=== PATIENT | male | born 1960 | race Asian ===

== ENCOUNTER 2025-05-26 07:45 | Inpatient (IN) | payer BC, SELFPAY ==
[2025-05-26 08:02] VITALS: BP 148/88; PULSE 89; RESP 18; TEMP 36.9; O2SAT 99; BMI 27.4
--- NOTE | 2025-05-26 08:03 | XR_ITS ---
EXAMINATION: US gall bladder ORDERING PROVIDER: JAKOB Nelson HISTORY: ruq pain TECHNIQUE: Multiplanar still ultrasonography of the right upper quadrant was performed using grayscale imaging, supplemented by color and spectral Doppler as needed. COMPARISON: None. FINDINGS: Liver: Diffuse increased echogenicity. 13.5 cm midclavicular craniocaudal length. No gross masses identified. Smooth contour. Gallbladder: Not hydropic. No para cholecystic fluid. No wall thickening. Biliary system: No biliary ductal dilatation. Common bile duct: 0.3 cm. Pancreas: Not well visualized due to overlying bowel gas. Right kidney length: 9.0 cm. Right collecting system: No hydronephrosis. Right parenchyma: Echogenicity within normal limits without focal lesion or mass. Vascular: Normal hepatopetal flow in the portal vein. Loss of triphasic waveform in the hepatic veins. Other: No ascites or mass. IMPRESSION: 1. No sonographic findings for acute cholecystitis or cholelithiasis. 2. Diffuse increased echogenicity, which can be seen with hepatic steatosis as well as other hepatic pathologies. 3. Nonspecific loss of triphasic waveforms in the hepatic veins can be seen with developing fibrosis.
--- NOTE | 2025-05-26 08:07 | PD.EDABDPN ---
ED Abdominal Pain RME/HPI General Chief Complaint: Abdominal Pain Stated complaint: ABD PAIN 02/09 Time seen by provider: 05/26/25 07:56 Arrival date/time: 05/26/25 07:45 65-year-old male with no known medical history presents to the emergency room with a chief complaint of 8 out of 10 epigastric pain that radiates to the right upper quadrant x 2 days Source: patient Mode of arrival: ambulatory Limitations: no limitations Related Data Previous Rx's ?Medication ?Instructions ?Recorded ciprofloxacin HCl 500 mg tablet 500 mg PO BID #14 tabs 07/02/19 (Cipro) ibuprofen 600 mg tablet 600 mg PO Q8H PRN pain #20 tabs 04/15/24 Allergies Allergy/AdvReac Type Severity Reaction Status Date / Time No Known Allergies Allergy Verified 05/26/25 07:48 Review of Systems Review of Systems Systems Reviewed: All systems reviewed, normal except as documented Constitutional Constitutional: Reports system reviewed and no additional complaints, except as documented, Denies fatigue, Denies fever(s), Denies headache(s) and Denies weakness Eyes Eyes: Reports system reviewed and no additional complaints, except as documented, Denies blurry vision and Denies change in vision ENT Ears, Nose, Mouth, and Throat: Reports system reviewed and no additional complaints, except as documented, Denies otalgia, Denies headache(s), Denies nasal congestion, Denies throat swelling and Denies vertigo Cardiovascular Cardiovascular: Reports system reviewed and no additional complaints, except as documented, Denies chest pain, Denies dyspnea and Denies dyspnea on exertion Respiratory Respiratory: Reports system reviewed and no additional complaints, except as documented, Denies chest congestion, Denies cough, Denies dyspnea, Denies dyspnea on exertion and Denies wheezing Gastrointestinal Gastrointestinal: Reports system reviewed and no additional complaints, except as documented, Reports abdominal pain, Reports cramping, Reports dyspepsia, Denies nausea and Denies vomiting Genitourinary Genitourinary: Reports system reviewed and no additional complaints, except as documented, Denies dysuria and Denies hematuria Musculoskeletal Musculoskeletal: Reports system reviewed and no additional complaints, except as documented and Denies back pain Integumentary/Breasts Skin/Breast: Reports system reviewed and no additional complaints, except as documented and Denies wounds Neurologic Neurologic: Reports system reviewed and no additional complaints, except as documented, Denies confusion, Denies headache(s), Denies lack of coordination, Denies vertigo and Denies weakness Psychiatric Psychiatric: Reports system reviewed and no additional complaints, except as documented, Denies anxiety, Denies confusion, Denies depression, Denies paranoia, Denies suicidal ideation and Denies tactile hallucinations Endocrine Endocrine: Reports system reviewed and no additional complaints, except as documented and Denies fatigue Hematologic/Lymphatic Hematologic/Lymphatic: Reports system reviewed and no additional complaints, except as documented and Denies lymphadenopathy Allergic/Immunologic Allergic/Immunologic: Reports system reviewed and no additional complaints, except as documented, Denies throat swelling, Denies urticaria and Denies wheezing ED Exam General Limitations: Present no limitations General appearance: Present alert and in no apparent distress Head Head exam: Present atraumatic Eye Eye exam: Present normal appearance, PERRL and EOMI ENT ENT exam: Present normal exam, normal oropharynx and mucous membranes moist Neck Neck exam: Present normal inspection, full ROM and trachea midline Chest Chest inspection: Present normal inspection and symmetric chest wall rise Respiratory Respiratory exam: Present normal lung sounds bilaterally Cardiovascular Cardiovascular exam: Present regular rate, normal rhythm and normal heart sounds Abdominal Exam Abdominal exam: Present soft, tenderness and normal bowel sounds; Absent distention, guarding, rebound, rigidity or Holland's sign Abdominal tenderness: Present RUQ Extremities Exam Extremities exam: Present normal inspection and full ROM Back Exam Back exam: Present normal inspection and full ROM Neurological Exam Neurological exam: Present alert, oriented X3 and CN II-XII intact Psychiatric Psychiatric exam: Present normal affect and normal mood Skin Skin exam: Present warm, dry, intact and normal color Course Quality Measures none Orders Category Date Time Status COVID-19 Screening Questionnaire NOW Care 05/26/25 13:06 Active Decision to Admit X1 Care 05/26/25 13:05 Active Insert IV STAT Care 05/26/25 12:30 Active Consult to Gastroenterology Stat Cons 05/26/25 13:[address] abdomen pelvis wo con Stat Exams 05/26/25 10:43 Completed US gall bladder Stat Exams 05/26/25 08:03 Completed CBC Stat Lab 05/26/25 09:24 Completed CMP [Comprehensive Metabolic Panel] Stat Lab 05/26/25 09:24 Completed Lipase Stat Lab 05/26/25 09:24 Completed Lipid Panel Stat Lab 05/26/25 09:24 Completed UA [Urinalysis] Stat Lab 05/26/25 09:32 Completed Urine Culture Stat Lab 05/26/25 09:32 Received Acetaminophen Tab [Tylenol Tab] Med 05/26/25 08:03 Discontinued 650 mg PO X1 ONE Fenofibrate Nanocrystallized [Tricor] Med 05/26/25 12:30 Discontinued 145 mg PO X1 ONE Morphine* Inj Med 05/26/25 13:05 Discontinued 4 mg IVP X1 ONE Ondansetron Inj [Zofran Inj] Med 05/26/25 13:05 Discontinued 4 mg IVP X1 ONE Pantoprazole Inj [Protonix Inj] Med 05/26/25 12:30 Discontinued 40 mg IVP X1 ONE Sodium Chloride 0.9% 1000 ml [Ns] 1,000 ml Med 05/26/25 12:31 Discontinued IV 125 mls/hr mg Hyd/Al Hyd/Hal Susp [Maalox Susp] Med 05/26/25 08:03 Discontinued 30 ml PO X1 ONE Vital Signs Vital signs: Vital Signs Temperature 98.5 F 05/26/25 08:02 Pulse Rate 89 05/26/25 08:02 Respiratory Rate 18 05/26/25 08:02 Blood Pressure 148/88 H 05/26/25 08:02 Pulse Oximetry (%) 99 05/26/25 08:02 Oxygen Delivery Method Room Air 05/26/25 08:02 Abdominal Pain MDM MDM Narrative MDM Narrative:: 65-year-old male with no known medical history presents to the emergency room with a chief complaint of 8 out of 10 epigastric pain that radiates to the right upper quadrant x 2 days Patient is hemodynamically stable and in no apparent distress Physical examination shows tenderness to the patient's epigastric area of the patient's abdomen. Patient denies any nausea any vomiting or any fevers Ultrasound of the gallbladder was completed and was negative for any acute findings. CBC CMP were within normal limits. Lipase was elevated at 2900. A CT of the abdomen and pelvis was then ordered which showed acute pancreatitis. The supervisor machine setter on-call Dr. Steve was consulted and his recommendations were to admit the patient start him on IV fluids and manage his pain. I then called the hospitalist to admit the patient and Dr. Gibbons admitted the patient. Patient data External records reviewed:: [facility] previous records Clinical information provided by:: patient Social determinants that could affect healthcare access:: none Patient has the following chronic illnesses:: No chronic illness How is presenting disease/condition affected by chronic disease/condition?: no chronic disease Evaluation data The following diagnostics were reviewed and interpreted by me:: lab results and radiology exam(s) Lab and/or radiology exams considered but not ordered:: Labs and radiology exams considered and ordered Interpretation Summary: Ultrasound gallbladder-FINDINGS: Liver: Diffuse increased echogenicity. 13.5 cm midclavicular craniocaudal length. No gross masses identified. Smooth contour. Gallbladder: Not hydropic. No para cholecystic fluid. No wall thickening. Biliary system: No biliary ductal dilatation. Common bile duct: 0.3 cm. Pancreas: Not well visualized due to overlying bowel gas. Right kidney length: 9.0 cm. Right collecting system: No hydronephrosis. Right parenchyma: Echogenicity within normal limits without focal lesion or mass. Vascular: Normal hepatopetal flow in the portal vein. Loss of triphasic waveform in the hepatic veins. Other: No ascites or mass. IMPRESSION: 1. No sonographic findings for acute cholecystitis or cholelithiasis. 2. Diffuse increased echogenicity, which can be seen with hepatic steatosis as well as other hepatic pathologies. 3. Nonspecific loss of triphasic waveforms in the hepatic veins can be seen with developing fibrosis. CT abdomen pelvis-Findings: No focal liver or splenic lesions No gallstones Mild edema around the body and tail of the pancreas No adrenal mass Left renal calculi, the largest 7 mm Posterior 33 mm left renal cyst Aortic calcification no aneurysmal dilatation Normal appendix Normal seminal vesicles Mild prostatomegaly Urinary bladder intact IMPRESSION: Mild acute pancreatitis No pancreatic pseudocyst Nonobstructing left renal calculi Normal appendix Medications / Prescriptions Medications or Prescriptions considered but not ordered:: Medication given Medication administrations:: Medication Administration History Acetaminophen (Acetaminophen 325 Mg Tablet) 650 mg PO Q6H PRN PRN Reason: PAIN SCALE 1-3 (mild Stop: 06/25/25 13:24 Sodium Chloride (Ns) 1,000 mls @ 110 mls/hr IV .Q9H6M BETTIE Stop: 06/25/25 13:29 Sodium Chloride (Ns) 1,000 mls @ 175 mls/hr IV .Q5H43M BETTIE Stop: 06/25/25 13:45 Ondansetron HCl (Ondansetron Inj 2 Mg/Ml Inj 2 Ml) 4 mg IVP Q6H PRN; Protocol PRN Reason: NAUSEA OR VOMITING Stop: 06/25/25 13:24 Tramadol HCl (Tramadol Hcl 50 Mg Tablet) 50 mg PO Q6HR PRN PRN Reason: PAIN SCALE 4-6 (Moderate Stop: 05/31/25 13:24 Discontinued Medications Acetaminophen (Acetaminophen 325 Mg Tablet) 650 mg PO X1 ONE Stop: 05/26/25 08:04 Last Admin: 05/26/25 08:10 Dose: 650 mg Documented By: VL Al Hydrox/Mg Hydrox/Simethicone (Mg Hyd/Al Hyd/Hal (Maalox Reg) Susp 30 Ml Udc) 30 ml PO X1 ONE Stop: 05/26/25 08:04 Last Admin: 05/26/25 08:10 Dose: 30 ml Documented By: VL Fenofibrate (Fenofibrate 145 Mg Tablet (Non-Formulary)) 145 mg PO X1 ONE Stop: 05/26/25 12:31 Last Admin: 05/26/25 15:15 Dose: 145 mg Documented By: TANK Sodium Chloride (Ns) 1,000 mls @ 125 mls/hr IV .Q8H BETTIE Stop: 06/25/25 12:30 Last Admin: 05/26/25 13:45 Dose: 125 mls/hr Documented By: OA Morphine Sulfate (Morphine Sulf Inj 4 Mg/Ml Vial) 4 mg IVP X1 ONE Stop: 05/26/25 13:06 Last Admin: 05/26/25 14:15 Dose: 4 mg Documented By: VL Ondansetron HCl (Ondansetron Inj 2 Mg/Ml Inj 2 Ml) 4 mg IVP X1 ONE; Protocol Stop: 05/26/25 13:06 Last Admin: 05/26/25 14:14 Dose: 4 mg Documented By: ROLLY Pantoprazole Sodium (Pantoprazole Inj 40 Mg Vial) 40 mg IVP X1 ONE Stop: 05/26/25 12:31 Medication given medication given Consultations Consultation(s) initiated? (list below): Yes Consultation #1 (Physician, Specialty, Details): Dr. Steve, supervisor machine setter on-call Time: 13:00 Diagnosis Differential diagnosis abdominal pain: abdominal pain, constipation, gastroenteritis, pancreatitis and other (Cholelithiasis/cholecystitis/gastritis/acute pancreatitis) Most likely diagnosis given after review of the tests above:: Pancreatitis Admission Indicated Admission indicated?: indicated Admission Request Was there a request for admission?: Yes Admission Attestation Admission request attestation: Discussed case with [] from Hospitalist service regarding admission. Discussed patients ED course, exam findings, labs, and radiology results. The Hospitalist [agrees,declines] to accept the patient for admission. Disposition Plan Disposition Plan: Admit Discharge Plan Plan Patient Disposition: HOME (Self Care) Discharge Disposition comment: Stable Problem List Clinical Impression: Acute pancreatitis
[2025-05-26] MEDS: MG HYD/AL HYD/SIME (Maalox Reg) SUSP 30 ML UDC PO (08:10)
[2025-05-26] MEDS: ACETAMINOPHEN 325 MG TABLET 650 MG PO (08:10)
[2025-05-26 09:41] LABS: Collection Type, Urine Clean Catch; Squamous Epithelial Cell,Urine 0 /hpf (0-5)
[2025-05-26 09:49] LABS: Bilirubin,Urine Negative (Negative); Blood,Urine Negative (Negative); Clarity,Urine Clear (Clear/Hazy); Color,Urine Lt-Yellow (Lt Yel-Yel); Glucose, Urine 3+ (Negative); Hyaline Casts,Urine < 1 /hpf (0-1); Ketones,Urine Negative (Negative); Leukocyte Esterase,Urine Negative (Negative); Nitrite,Urine Negative (Negative); PH,Urine 6.0 (5.0-7.0); Protein,Urine Trace (Neg - Trace); RBC,Urine 1 /hpf (0-3); Specific Gravity,Urine 1.030 (1.001-1.035); Urobilinogen,Urine Negative mg/dL (0.0-1.0); WBC,Urine 1 /hpf (0-5)
[2025-05-26 10:00] LABS: Basophils # (Auto) 0.0 Thou/mm3 (0.0-0.2); Basophils % (Auto) 0 % (0-2.5); Eosinophils # (Auto) 0.0 Thou/mm3 (0.0-0.5); Eosinophils % (Auto) 0 % (0-10); Hematocrit 45.3 % (41.0-53.0); Hemoglobin 15.0 g/dL (13.5-16.0); Immature Granulocytes Auto 0.05 Thou/mm3 (0.00-0.00); Lymphocytes # (Auto) 1.1 Thou/mm3 (1.0-4.8); Lymphocytes % (Auto) 11 % (10-50); Mean Corpuscular HGB Conc 33.1 g/dl (31.0-37.0); Mean Corpuscular Hemoglobin 28.6 pg (25.0-35.0); Mean Corpuscular Volume 87 fL (80-100); Monocytes # (Auto) 0.5 Thou/mm3 (0.0-0.8); Monocytes % (Auto) 5 % (0-12); Neutrophils # (Auto) 8.0 Thou/mm3 (1.8-7.7); Neutrophils % (Auto) 83 % (37-80); Nucleated Red Blood Cell # 0.00 Thou/mm3 (0.00-0.00); Nucleated Red Blood Cell % 0 /100 WBC (0); Platelet Count 174 Thou/mm3 (140-440); RDW Standard Deviation 37.6 fL (35.1-43.9); Red Blood Count 5.24 Miln/mm3 (4.50-5.90); White Blood Count 9.6 Thou/mm3 (3.8-10.6)
[2025-05-26 10:21] LABS: Alanine Aminotransferase 37 U/L (10-49); Albumin, Serum 5.0 gm/dL (3.4-4.8); Albumin/Globulin Ratio 2.1 (1.2-2.2); Alkaline Phosphatase 79 U/L (46-116); Anion Gap 12 (7-16); Aspartate Amino Transferase 27 U/L (0-34); BUN/Creatinine Ratio 17 Ratio (12-20); Bilirubin,Total 0.3 mg/dL (0.3-1.2); Blood Urea Nitrogen 20 mg/dL (9-23); Calcium 9.6 mg/dL (8.3-10.6); Calcium (Corrected) 9.6 mg/dL (8.5-10.1); Carbon Dioxide 24.4 mMol/L (20.0-31.0); Chloride 103 mMol/L (98-107); Creatinine (Component) 1.2 mg/dL (0.6-1.3); Estimated Creatinine Clearance 57.5 mL/min (>60); Globulin 2.4 gm/dL (2.3-3.5); Glucose 257 mg/dL (74-106); Lipase 2956 U/L (12-53); Osmolality,Calculated 289 (275-295); Potassium 4.4 mMol/L (3.4-5.1); Sodium 139 mMol/L (136-145); Total Protein 7.4 gm/dL (5.7-8.2); eGFR > 60 See Note
--- NOTE | 2025-05-26 10:43 | XR_ITS ---
Examination: CT abdomen and pelvis without contrast. Coronal 3-D reconstructions. Sagittal 2-D reconstructions. Date and time of exam: May 26, 2025, 11:20 a.m. INDICATIONS: Epigastric pain radiating to the right upper abdomen beginning 2 days ago COMPARISON: November 01, 2008 CTDI: vol (mGy): 7.25 DLP: (mGycm): 408 Technique: Axial images of the abdomen have been obtained, 3 mm slice thickness Intravenous contrast material has not been administered. Low dose protocols were performed. One or more of the following dose reduction techniques were used; automated exposure control, adjustment of the mA and/or KV according to patient size, use of iterative reconstruction technique. Findings: No focal liver or splenic lesions No gallstones Mild edema around the body and tail of the pancreas No adrenal mass Left renal calculi, the largest 7 mm Posterior 33 mm left renal cyst Aortic calcification no aneurysmal dilatation Normal appendix Normal seminal vesicles Mild prostatomegaly Urinary bladder intact IMPRESSION: Mild acute pancreatitis No pancreatic pseudocyst Nonobstructing left renal calculi Normal appendix
[2025-05-26 11:50] LABS: Cardiac Risk Estimate 5.0 RATIO (4.0-6.7); Cholesterol 314 mg/dL (132-200); HDL Cholesterol 63 mg/dL (40-60); LDL Cholesterol,Calculated 183 mg/dL (0-130); Triglycerides 342 mg/dL (30-150)
[2025-05-26] MEDS: SODIUM CHLORIDE 0.9% 1000 ML 1,000 ML 125 ML IV (13:45)
[2025-05-26] MEDS: ONDANSETRON INJ 2 MG/ML INJ 2 ML 4 MG IVP ×2 (14:14→17:39)
[2025-05-26] MEDS: MORPHINE SULF INJ 4 MG/ML VIAL IVP (14:15)
[2025-05-26 15:03] VITALS: BP 143/84; PULSE 77; RESP 16; TEMP 36.8; O2SAT 96
[2025-05-26] MEDS: FENOFIBRATE 145 MG TABLET (NON-FORMULARY) PO (15:15)
--- NOTE | 2025-05-26 16:09 | ESHP_ITS ---
Documentation for date of: 05/26/25 [facility] History of Present Illness History of present illness: Patient is a 65-year-old M with a PMH of pre-diabetes and HLD who presented on 05/26/2025 with a chief complaint of abdominal pain. He states that the pain started at 4 AM earlier in the morning and was accompanied by sweating, nausea, and dry heaving (but no actual episodes of vomiting). When asked if he thought that anything might have triggered this, he reported that he ate pork belly and rice the night prior but denies ever having a similar previous episode. He describes the pain as generally localized all across the abdomen with some radiation to the back and rated the pain as a 10/10 (later decreasing to 2/10 as he received morphine during the interview). PMH: pre-diabetes, HLD PSH: none Medications: none Allergies: NKDA FH: both parents have T2DM and mother had ovarian cancer SH: smoked an average of 0.5 packs/day from age [age] In the ED, vitals showed: BP 148/88 HR 89 RR 18 Temp 98.5 SpO2 99% on room air CBC WNL. CMP showed blood glucose 257, lipid panel - (triglycerides 342, cholesterol 314, LDL 183, HDL 63), and lipase 2956. UA was bland. Imagin/24 gallbladder US showed findings suggestive of hepatic steatosis and developing fibrosis but was negative for sonographic findings for acute cholecystitis or cholelithiasis. 05/26 CTAP showed mild acute pancreatitis and non-obstructing left renal calculi. In the ED, patient was given Maalox PO, Tylenol PO, Zofran IV, morphine IV, fenofibrate PO, Protonix IV, and 2 L NS fluid. Patient was admitted for the work-up and management of acute pancreatitis. GI was consulted and is closely following the case. Review of Systems Review of Systems Systems Reviewed: All systems reviewed, normal except as documented Exam Vital Signs Temp Pulse Resp BP Pulse Ox O2 Del Method 98.3 F 77 16 143/84 H 96 Room Air 05/26/25 15:03 05/26/25 15:03 05/26/25 15:03 05/26/25 15:03 05/26/25 15:03 05/26/25 15:03 Narrative Exam General: Well-developed and well-nourished male in some distress. Skin: Warm, dry, intact, no obvious rash. Head: Normocephalic, atraumatic. Eyes: EOMI. Anicteric, vision grossly intact. Ears: No ear pain, no ear discharge, Hearing grossly intact. Nose: No nasal discharge. Mouth/Throat: Oral mucosa moist. No obvious lesions in oropharynx. Cardiovascular: Regular rate and normal rhythm, no murmur, no JVD or carotid bruits. +S1/S2. Respiratory: Bilateral lungs are clear to auscultation, respirations unlabored, no crackles, no wheezing. No accessory muscle use. Gastrointestinal: (of note, patient had received morphine IV by the time of abdominal exam) Soft, nontender, non-distended, no palpable masses. No guarding or rebound tenderness. Peristalsis present. Extremities: Symmetrical, no significant deformities. No edema, no cyanosis, no clubbing. 2+ radial pulse bilaterally, 2+ posterior tibial pulse bilaterally. Neuro: A&O x 3. No focal deficits observed. Conversant, moving all extremities. No overt cerebellar signs/incoordination. Psychiatric: Cooperative, appropriate affect. Results: Labs 05/26/25 09:24 05/26/25 09:24 Labs: Short CBC 05/26/25 Range/Units 09:24 WBC 9.6 (3.8-10.6) Thou/mm3 Hgb 15.0 (13.5-16.0) g/dL Hct 45.3 (41.0-53.0) % Plt Count 174 (140-440) Thou/mm3 BMP 05/26/25 09:24 Sodium 139 Potassium 4.4 Chloride 103 Carbon Dioxide 24.4 BUN 20 Creatinine 1.2 Glucose 257 H Calcium 9.6 Liver Function 05/26/25 Range/Units 09:24 Total Bilirubin 0.3 (0.3-1.2) mg/dL AST 27 (0-34) U/L ALT 37 (10-49) U/L Alkaline Phosphatase 79 (46-116) U/L Albumin 5.0 H (3.4-4.8) gm/dL Urine 05/26/25 Range/Units 09:32 Urine Color Lt-Yellow (Lt Yel-Yel) Urine Clarity Clear (Clear/Hazy) Urine pH 6.0 (5.0-7.0) Ur Specific [place] 1.030 (1.001-1.035) Urine Protein Trace (Neg - Trace) Urine Glucose (UA) 3+ A (Negative) Quality Measures Quality Measures none Medications Home Medications and Allergies Allergies Allergy/AdvReac Type Severity Reaction Status Date / Time No Known Allergies Allergy Verified 05/26/25 07:48 Visit Medications Acetaminophen (Acetaminophen 325 Mg Tablet) 650 mg PO Q6H PRN PRN Reason: PAIN SCALE 1-3 (mild Stop: 06/25/25 13:24 Sodium Chloride (Ns) 1,000 mls @ 120 mls/hr IV .Q8H20M BETTIE Stop: 06/25/25 15:36 Ondansetron HCl (Ondansetron Inj 2 Mg/Ml Inj 2 Ml) 4 mg IVP Q6H PRN; Protocol PRN Reason: NAUSEA OR VOMITING Stop: 06/25/25 13:24 Tramadol HCl (Tramadol Hcl 50 Mg Tablet) 50 mg PO Q6HR PRN PRN Reason: PAIN SCALE 4-6 (Moderate Stop: 05/31/25 13:24 Discontinued Medications Acetaminophen (Acetaminophen 325 Mg Tablet) 650 mg PO X1 ONE Stop: 05/26/25 08:04 Last Admin: 05/26/25 08:10 Dose: 650 mg Al Hydrox/Mg Hydrox/Simethicone (Mg Hyd/Al Hyd/Hal (Maalox Reg) Susp 30 Ml Udc) 30 ml PO X1 ONE Stop: 05/26/25 08:04 Last Admin: 05/26/25 08:10 Dose: 30 ml Fenofibrate (Fenofibrate 145 Mg Tablet (Non-Formulary)) 145 mg PO X1 ONE Stop: 05/26/25 12:31 Last Admin: 05/26/25 15:15 Dose: 145 mg Sodium Chloride (Ns) 1,000 mls @ 125 mls/hr IV .Q8H BETTIE Stop: 06/25/25 12:30 Last Admin: 05/26/25 13:45 Dose: 125 mls/hr Sodium Chloride (Ns) 1,000 mls @ 110 mls/hr IV .Q9H6M BETTIE Stop: 06/25/25 13:29 Sodium Chloride (Ns) 1,000 mls @ 175 mls/hr IV .Q5H43M BETTIE Stop: 06/25/25 13:45 Morphine Sulfate (Morphine Sulf Inj 4 Mg/Ml Vial) 4 mg IVP X1 ONE Stop: 05/26/25 13:06 Last Admin: 05/26/25 14:15 Dose: 4 mg Ondansetron HCl (Ondansetron Inj 2 Mg/Ml Inj 2 Ml) 4 mg IVP X1 ONE; Protocol Stop: 05/26/25 13:06 Last Admin: 05/26/25 14:14 Dose: 4 mg Pantoprazole Sodium (Pantoprazole Inj 40 Mg Vial) 40 mg IVP X1 ONE Stop: 05/26/25 12:31 Assessment & Plan Plan Patient is a 65-year-old M with a PMH of pre-diabetes and HLD who presented on 05/26/2025 with a chief complaint of abdominal pain. Patient was admitted for the work-up and management of acute pancreatitis. #Acute pancreatitis #Hyperlipidemia #Hepatic steatosis Patient presented on 05/26 with abdominal pain that radiated to the back accompanied by sweating, nausea, and dry heaving 05/26 admission lipase 2956 and lipid panel showed triglycerides 342, cholesterol 314, LDL 183, HDL 63 05/26 gallbladder US showed hepatic steatosis and developing fibrosis but was negative for acute cholecystitis or cholelithiasis 05/26 CTAP showed mild acute pancreatitis No significant drinking history Rx: -IV NS maintenance fluid @ 120 cc/hr -NPO for bowel rest -Pain management -Zofran 4 mg IV prn #Pre-diabetes 05/26 admission blood glucose 257 No home medications for diabetes Dx: -Hemoglobin A1c ordered, ___ Rx: -Monitor blood glucose q6HR -Will start insulin sliding scale if blood glucose levels consistently remain above 180 Hospital Management: Disposition: Med Surg Diet: NPO GI Prophylaxis: Not Indicated Bowel Prophylaxis: Not Indicated DVT Prophylaxis: Heparin CODE STATUS: Full Code I have examined the patient and conferred with my attending, Dr. Gibbons, and my senior resident, Dr. Sharif, regarding them. Cortes Saini DO PGY-1 Internal Medicine Attending Provider Attestation/Addendum I or my resident physicians have discussed care with the ED physician and I have made the decision to admit. I have discussed and was present for the essential components of the history, physical examination, diagnosis, and treatment plan with the resident. I agree with the patient's care as documented by the resident and amended herein by me. Anirudh Gibbons DO. Although this document has been carefully reviewed, there may still be some phonetic and other typographical errors. These errors are purely grammatical due to imperfections in the software program and should not be construed in any way to compromise the substance of the patient's medical care during this visit.
[2025-05-26] MEDS: SODIUM CHLORIDE 0.9% 1000 ML 1,000 ML 120 ML IV (16:22)
--- NOTE | 2025-05-26 16:48 | PC.NURSE ---
Patient arrived [id number]
[2025-05-26 17:04] VITALS: BMI 27.4
[2025-05-26] MEDS: HEPARIN SOD INJ 5000 UNIT/ML VIAL SC (17:38)
--- NOTE | 2025-05-26 17:47 | PC.NURSE ---
ice chips ok if tolerated Dr. SORENSON
--- NOTE | 2025-05-26 19:46 | PD.IMCONS ---
HPI Data of Consult Requesting Physician: Atul Gibbons DO Primary Care Provider: Rosario Crouch MD Consult Narrative Reason for consult: Pain abdomen, elevated lipase, elevated triglycerides History of present illness: 65 years male who presented with pain abdomen Workup in the emergency room revealed the patient has lipase of 2956 CT scan of the abdomen pelvis without contrast showed acute pancreatitis no gallbladder stones Patient's lipid profile showed a total cholesterol 314 HDL 63 LDL 183 and alk phos of 342 Case was discussed with the internal medicine team and the ER physician activities assistant and subsequently admitted For being n.p.o. IV fluids Pain control Start the patient on atorvastatin 80 mg once a day and fenofibrate 165 mg once a day cc:: cc: Atul Gibbons DO Review of Systems Review of Systems Systems Reviewed: All systems reviewed, normal except as documented Past Medical History Surgical History OTHER SURGICAL HX: As in the history of present illness Meds Home Medications and Allergies Allergies Allergy/AdvReac Type Severity Reaction Status Date / Time No Known Allergies Allergy Verified 05/26/25 07:48 Exam Vital Signs Temp Pulse Resp BP Pulse Ox O2 Del Method 98.3 F 77 16 143/84 H 96 Room Air 05/26/25 15:03 05/26/25 15:03 05/26/25 15:03 05/26/25 15:03 05/26/25 15:03 05/26/25 15:03 Constitutional Comments: In somewhat of a pain Routine Respiratory Exam Comments: Normal to auscultation Routine Abdominal Exam Comments: Soft nontender Results Labs 05/26/25 09:24 05/26/25 09:24 Labs: Short CBC 05/26/25 Range/Units 09:24 WBC 9.6 (3.8-10.6) Thou/mm3 Hgb 15.0 (13.5-16.0) g/dL Hct 45.3 (41.0-53.0) % Plt Count 174 (140-440) Thou/mm3 BMP 05/26/25 09:24 Sodium 139 Potassium 4.4 Chloride 103 Carbon Dioxide 24.4 BUN 20 Creatinine 1.2 Glucose 257 H Calcium 9.6 Liver Function 05/26/25 Range/Units 09:24 Total Bilirubin 0.3 (0.3-1.2) mg/dL AST 27 (0-34) U/L ALT 37 (10-49) U/L Alkaline Phosphatase 79 (46-116) U/L Albumin 5.0 H (3.4-4.8) gm/dL Urine 05/26/25 Range/Units 09:32 Urine Color Lt-Yellow (Lt Yel-Yel) Urine Clarity Clear (Clear/Hazy) Urine pH 6.0 (5.0-7.0) Ur Specific [place] 1.030 (1.001-1.035) Urine Protein Trace (Neg - Trace) Urine Glucose (UA) 3+ A (Negative) Assessment and Plan Additional Assessment & Plan Additional Plan: Acute hypertriglyceridemia induced pancreatitis Pain abdomen secondary to 1 Plan IV fluids Pain control n.p.o. Atorvastatin 80 mg once a day Fenofibrate 145 mg once a day Dietary consultation for a 10 g fat diet Will follow the patient Thank you very much for the opportunity to participate in the care of this patient
[2025-05-26 20:00] VITALS: BP 107/67; PULSE 84; RESP 18; TEMP 37.4; O2SAT 96
[2025-05-26] MEDS: MORPHINE SULF INJ 4 MG/ML VIAL 2 MG IVP (21:30)
[2025-05-27] VITALS: BP 119/76; PULSE 87; RESP 18; TEMP 37.1; O2SAT 93
[2025-05-27] MEDS: SODIUM CHLORIDE 0.9% 1000 ML 1,000 ML 120 ML IV ×3 (01:40→21:01)
[2025-05-27 04:00] VITALS: BP 97/64; PULSE 93; RESP 18; TEMP 36.8; O2SAT 95
[2025-05-27 06:03] LABS: Basophils # (Auto) 0.0 Thou/mm3 (0.0-0.2); Basophils % (Auto) 0 % (0-2.5); Eosinophils # (Auto) 0.1 Thou/mm3 (0.0-0.5); Eosinophils % (Auto) 1 % (0-10); Hematocrit 41.6 % (41.0-53.0); Hemoglobin 13.5 g/dL (13.5-16.0); Immature Granulocytes Auto 0.03 Thou/mm3 (0.00-0.00); Lymphocytes # (Auto) 2.0 Thou/mm3 (1.0-4.8); Lymphocytes % (Auto) 20 % (10-50); Mean Corpuscular HGB Conc 32.5 g/dl (31.0-37.0); Mean Corpuscular Hemoglobin 28.4 pg (25.0-35.0); Mean Corpuscular Volume 88 fL (80-100); Monocytes # (Auto) 0.8 Thou/mm3 (0.0-0.8); Monocytes % (Auto) 8 % (0-12); Neutrophils # (Auto) 6.9 Thou/mm3 (1.8-7.7); Neutrophils % (Auto) 70 % (37-80); Nucleated Red Blood Cell # 0.00 Thou/mm3 (0.00-0.00); Nucleated Red Blood Cell % 0 /100 WBC (0); Platelet Count 168 Thou/mm3 (140-440); RDW Standard Deviation 38.7 fL (35.1-43.9); Red Blood Count 4.75 Miln/mm3 (4.50-5.90); White Blood Count 9.8 Thou/mm3 (3.8-10.6)
[2025-05-27 06:16] LABS: Glucose Estimated Average 148 mg/dL (80-131); Hemoglobin A1C 6.8 % Hgb (4.8-6.0)
[2025-05-27 06:23] LABS: Anion Gap 9 (7-16); BUN/Creatinine Ratio 13 Ratio (12-20); Blood Urea Nitrogen 13 mg/dL (9-23); Carbon Dioxide 23.8 mMol/L (20.0-31.0); Chloride 107 mMol/L (98-107); Creatinine (Component) 1.0 mg/dL (0.6-1.3); Estimated Creatinine Clearance 69.0 mL/min (>60); Glucose 158 mg/dL (74-106); Potassium 3.9 mMol/L (3.4-5.1); Sodium 140 mMol/L (136-145); eGFR > 60 See Note
[2025-05-27 06:24] LABS: Alanine Aminotransferase 29 U/L (10-49); Albumin, Serum 4.4 gm/dL (3.4-4.8); Albumin/Globulin Ratio 2.3 (1.2-2.2); Amylase 946 U/L (30-118); Aspartate Amino Transferase 18 U/L (0-34); Bilirubin,Total 0.7 mg/dL (0.3-1.2); Calcium 9.0 mg/dL (8.3-10.6); Calcium (Corrected) 9.0 mg/dL (8.5-10.1); Globulin 1.9 gm/dL (2.3-3.5); Lipase 522 U/L (12-53); Osmolality,Calculated 282 (275-295); Total Protein 6.3 gm/dL (5.7-8.2)
[2025-05-27 06:54] LABS: Alkaline Phosphatase 64 U/L (46-116)
[2025-05-27 08:00] VITALS: BP 110/70; PULSE 60; RESP 17; TEMP 36.1; O2SAT 94
[2025-05-27] MEDS: HEPARIN SOD INJ 5000 UNIT/ML VIAL SC ×2 (08:13→21:01)
[2025-05-27 12:00] VITALS: BP 109/51; PULSE 71; RESP 17; TEMP 36.6; O2SAT 96
--- NOTE | 2025-05-27 13:37 | ESPR_ITS ---
<Statement entered by Sherie Sharif MD - 05/27/25 16:23> Patient was seen and examined by me personally. I have directly supervised and reviewed documentation by the team resident and agree with its findings with any exceptions or additional findings as below. Plan of care was discussed with the attending, Dr. Vila. Patient was seen and examined today, feeling much better than yesterday on admission. Patient denied any abdominal pain today, nausea, or vomiting. Patient denies feeling hungry however is amenable to starting clear liquids for lunch, later checked in with patient and he tolerated it well. Will advance the diet for dinner. Continue fluids at 120 ml/hr. Patient had an A1c of 6.8, placing him in diabetic range. Patient stated that previously, he has been borderline before but never been diagnosed a diabetic. He also has not seen a doctor in several years. Educated patient on the diagnosis of diabetes and diet and lifestyle modifications. Consulted foundry patternmaker who will be able to debt management counselor the patient tomorrow morning. Likely discharge tomorrow around noon, will most likely start metformin, along with atorvastatin, and fenofibrate as recommended by GI. Sherie Sharif, PGY-3 Documentation for date of: 05/27/25 Subjective Subjective Interval history: (below account synthesized retroactively with additional information from Dr. Sharif's attestation) No overnight events. Patient was examined at bedside; they appear A&Ox3 and in NAD. Vitals/labs today WNL. Physical exam was non-contributory. On interview today, patient reported feeling much better than he did yesterday upon admission. He denied any abdominal pain today, nausea, or vomiting. Patient also denied feeling hungry but was amenable to starting clear liquids for lunch, which he tolerated well. For dinner, his diet will be advanced to Carbohydrate Consistent Low and, if he tolerates it, he will be considered medically cleared for discharge. In the meantime, he will be continued on fluids at 120 cc/hr. Patient's HgbA1c this admission has resulted at 6.8, placing him in diabetic range instead of pre-diabetic. Patient stated that previously, he has been borderline before but had never been diagnosed as diabetic outright. He also has not seen a doctor in several years. Patient was educated on the diagnosis of diabetes and diet and lifestyle modifications. A consult for dietitian has been ordered who will be able to debt management counselor the patient tomorrow morning. Patient is anticipated to be discharged tomorrow around noon and will most likely be started on metformin, atorvastatin, and fenofibrate as recommended by GI. Exam Vital Signs Temp Pulse Resp BP Pulse Ox O2 Del Method 97.8 F 71 17 109/51 L 96 Room Air 05/27/25 12:00 05/27/25 12:00 05/27/25 12:00 05/27/25 12:00 05/27/25 12:00 05/27/25 12:00 Narrative Exam General: Well-developed and well-nourished male in no acute distress. Skin: Warm, dry, intact, no obvious rash. Head: Normocephalic, atraumatic. Eyes: EOMI. Anicteric, vision grossly intact. Ears: No ear pain, no ear discharge, Hearing grossly intact. Nose: No nasal discharge. Mouth/Throat: Oral mucosa moist. No obvious lesions in oropharynx. Cardiovascular: Regular rate and normal rhythm, no murmur, no JVD or carotid bruits. +S1/S2. Respiratory: Bilateral lungs are clear to auscultation, respirations unlabored, no crackles, no wheezing. No accessory muscle use. Gastrointestinal: Soft, nontender, non-distended, no palpable masses. No guarding or rebound tenderness. Peristalsis present. Extremities: Symmetrical, no significant deformities. No edema, no cyanosis, no clubbing. 2+ radial pulse bilaterally, 2+ posterior tibial pulse bilaterally. Neuro: A&O x 3. No focal deficits observed. Conversant, moving all extremities. No overt cerebellar signs/incoordination. Psychiatric: Cooperative, appropriate affect. Objective Labs 05/28/25 05:10 05/28/25 05:10 Labs: Laboratory Results - last 24 hr 05/27/25 05:11 WBC 9.8 RBC 4.75 Hgb 13.5 Hct 41.6 MCV 88 MCH 28.4 MCHC 32.5 RDW Std Deviation 38.7 Plt Count 168 Neut % (Auto) 70 Lymph % (Auto) 20 [place] % (Auto) 8 Eos % (Auto) 1 Baso % (Auto) 0 Neut # (Auto) 6.9 Lymph # (Auto) 2.0 [place] # (Auto) 0.8 Eos # (Auto) 0.1 Baso # (Auto) 0.0 Immature Gran # (Auto) 0.03 H Absolute Nucleated RBC 0.00 Immature Gran % 0 Nucleated RBC % 0 Sodium 140 Potassium 3.9 D Chloride 107 Carbon Dioxide 23.8 Anion Gap 9 BUN 13 Creatinine 1.0 Estim Creat Clear Calc 69.0 eGFR > 60 BUN/Creatinine Ratio 13 [address]ucose [address] Glu mg/dL 148 H Hemoglobin A1c 6.8 H Calculated Osmolality 282 Calcium 9.0 Corrected Calcium 9.0 Total Bilirubin 0.7 AST 18 ALT 29 Alkaline Phosphatase 64 Total Protein 6.3 Albumin 4.4 D Globulin 1.9 L Albumin/Globulin Ratio 2.3 H Amylase 946 H* Lipase 522 H D Quality Measures Quality Measures none Assessment & Plan Assessment Current Active Medications: Generic Name Dose Route Start Last Admin Trade Name Freq PRN Reason Stop Dose Admin Acetaminophen 650 mg 05/26/25 13:25 Acetaminophen 325 Mg Tablet PO 06/25/25 13:24 Q6H PRN PAIN SCALE 1-3 (mild Heparin Sodium (Porcine) 5,000 unit 05/26/25 17:15 05/27/25 08:13 Heparin Sod Inj 5000 Unit/Ml Vial SC 06/09/25 17:14 5,000 unit Q12HR BETTIE Administration Sodium Chloride 1,000 mls @ 120 mls/hr 05/26/25 15:37 05/27/25 11:13 Ns IV 06/25/25 15:36 120 mls/hr .Q8H20M BETTIE Administration Morphine Sulfate 2 mg 05/26/25 17:47 05/26/25 21:30 Morphine Sulf Inj 4 Mg/Ml Vial IVP 05/31/25 17:46 2 mg Q4HR PRN Administration Severe Pain (7-10) Ondansetron HCl 4 mg 05/26/25 13:25 05/26/25 17:39 Ondansetron Inj 2 Mg/Ml Inj 2 Ml IVP 06/25/25 13:24 4 mg Q6H PRN Administration NAUSEA OR VOMITING Protocol Tramadol HCl 50 mg 05/26/25 13:25 05/26/25 17:38 Tramadol Hcl 50 Mg Tablet PO 05/31/25 13:24 50 mg Q6HR PRN Administration PAIN SCALE 4-6 (Moderate Plan Patient is a 65-year-old M with a PMH of pre-diabetes and HLD who presented on 05/26/2025 with a chief complaint of abdominal pain. Patient was admitted for the work-up and management of acute pancreatitis. #Acute pancreatitis #Hyperlipidemia #Hepatic steatosis Patient presented on 05/26 with abdominal pain that radiated to the back accompanied by sweating, nausea, and dry heaving 05/26 admission lipase 2956 and lipid panel showed triglycerides 342, cholesterol 314, LDL 183, HDL 63 05/26 gallbladder US showed hepatic steatosis and developing fibrosis but was negative for acute cholecystitis or cholelithiasis 05/26 CTAP showed mild acute pancreatitis No significant drinking history Rx: -IV NS maintenance fluid @ 120 cc/hr -NPO for bowel rest, advance diet as tolerated -Pain management -Zofran 4 mg IV prn #T2DM 05/26 admission blood glucose 257 Patient reported Hx of pre-diabetes but has not seen a doctor in several years No home medications for diabetes Dx: -Hemoglobin A1c ordered, 6.8 Rx: -Monitor blood glucose ACHS -Diabetes education regarding diet and lifestyle modifications completed -Consulted Registered Dietitian for patient education on diet -Plan to discharge him with metformin, atorvastatin, and fenofibrate as recommended by GI Hospital Management: Disposition: Med Surg Diet: Carbohydrate Consistent Low (05/27 dinner) GI Prophylaxis: Not Indicated Bowel Prophylaxis: Not Indicated DVT Prophylaxis: Heparin CODE STATUS: Full Code I have examined the patient and conferred with my attending, Dr. Vila, and my senior resident, Dr. Sharif, regarding them. Cortse Saini DO PGY-1 Internal Medicine Attending Provider Attestation/Addendum I have examined the patient, reviewed labs and imaging findings, discussed the case with the resident(s), and reviewed entered orders. I agree with the plan of care as outlined in this note, with these additional summaries/recommendations: Patient seen at bedside. No acute overnight events. Continue IV fluids, IV antiemetics, and as needed IV pain management for acute pancreatitis. Etiology currently unknown and likely idiopathic. Patient was counseled on etiologies for acute pancreatitis. We will advance diet to clear liquids today and monitor how he tolerates. Triglycerides minimally elevated and continue statin. A1c returned 6.8% and patient diagnosed with diabetes mellitus type 2. Will start insulin sliding scale as needed. Patient updated on the plan and agreement. All questions answered satisfaction. Please see residents note for additional details and management. Dr. Cadence MD
--- NOTE | 2025-05-27 15:54 | PC.SS ---
SS met with patient regarding his d/c plan. Pt is alert/oriented. Pt was admitted for Acute Pancreatitis. Pt confirmed demographic and contact information is correct on facesheet. Pt resides alone. Pt ambulates independently without assistance or DME. Pt is ok with all ADLs. Patient?s pharmacy of choice is [facility]. 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 Pt named his daughter, Emma Fernandez medical decision maker if he is unable. Patient?s choice is to return home upon d/c. Dtr will provide transportation home. Pt has not followed up with PCP. D/C plan: Return home Next of Kin: Emma Fernandez, dtr, phone# [phone] PCP: Dr. Rosario Crouch Address: Correct on facesheet
[2025-05-27 16:00] VITALS: BP 119/76; PULSE 79; RESP 17; TEMP 36.9; O2SAT 98
--- NOTE | 2025-05-27 17:59 | PD.IMPROG ---
Documentation for date of: 05/27/25 Subjective Subjective Interval history: Clinically improving Amylase 946 lipase 522 Calcium 9.0 Exam Vital Signs Temp Pulse Resp BP Pulse Ox O2 Del Method 98.4 F 79 17 119/76 98 Room Air 05/27/25 16:00 05/27/25 16:00 05/27/25 16:00 05/27/25 16:00 05/27/25 16:00 05/27/25 16:00 Objective Labs 05/27/25 05:11 05/27/25 05:11 Labs: Laboratory Results - last 24 hr 05/27/25 05:11 WBC 9.8 RBC 4.75 Hgb 13.5 Hct 41.6 MCV 88 MCH 28.4 MCHC 32.5 RDW Std Deviation 38.7 Plt Count 168 Neut % (Auto) 70 Lymph % (Auto) 20 [place] % (Auto) 8 Eos % (Auto) 1 Baso % (Auto) 0 Neut # (Auto) 6.9 Lymph # (Auto) 2.0 [place] # (Auto) 0.8 Eos # (Auto) 0.1 Baso # (Auto) 0.0 Immature Gran # (Auto) 0.03 H Absolute Nucleated RBC 0.00 Immature Gran % 0 Nucleated RBC % 0 Sodium 140 Potassium 3.9 D Chloride 107 Carbon Dioxide 23.8 Anion Gap 9 BUN 13 Creatinine 1.0 Estim Creat Clear Calc 69.0 eGFR > 60 BUN/Creatinine Ratio 13 Glucose [address] Glu mg/dL 148 H Hemoglobin A1c 6.8 H Calculated Osmolality 282 Calcium 9.0 Corrected Calcium 9.0 Total Bilirubin 0.7 AST 18 ALT 29 Alkaline Phosphatase 64 Total Protein 6.3 Albumin 4.4 D Globulin 1.9 L Albumin/Globulin Ratio 2.3 H Amylase 946 H* Lipase 522 H D Impressions Impression: Acute hypertriglyceridemia induced pancreatitis Improving Can start the patient on clear liquid diet Assessment & Plan A&P Narrative Acute hypertriglyceridemia induced pancreatitis Pain abdomen secondary to 1 Plan IV fluids Pain control n.p.o. Atorvastatin 80 mg once a day Fenofibrate 145 mg once a day Dietary consultation for a 10 g fat diet Will follow the patient Thank you very much for the opportunity to participate in the care of this patient Time Spent With Patient Time: Total time spent is greater than 50% in coordination of care (as documented) at patient's floor/unit and/or counseling patient:
[2025-05-27 20:00] VITALS: BP 118/72; PULSE 83; RESP 18; TEMP 36.4; O2SAT 93
[2025-05-28] VITALS: BP 108/65; PULSE 82; RESP 21; TEMP 36.9; O2SAT 94
[2025-05-28 04:00] VITALS: BP 105/51; PULSE 84; RESP 18; TEMP 36.8; O2SAT 93
[2025-05-28 05:37] LABS: Basophils # (Auto) 0.1 Thou/mm3 (0.0-0.2); Basophils % (Auto) 1 % (0-2.5); Eosinophils # (Auto) 0.3 Thou/mm3 (0.0-0.5); Eosinophils % (Auto) 3 % (0-10); Hematocrit 41.1 % (41.0-53.0); Hemoglobin 13.8 g/dL (13.5-16.0); Immature Granulocytes Auto 0.03 Thou/mm3 (0.00-0.00); Lymphocytes # (Auto) 2.0 Thou/mm3 (1.0-4.8); Lymphocytes % (Auto) 23 % (10-50); Mean Corpuscular HGB Conc 33.6 g/dl (31.0-37.0); Mean Corpuscular Hemoglobin 29.4 pg (25.0-35.0); Mean Corpuscular Volume 87 fL (80-100); Monocytes # (Auto) 0.8 Thou/mm3 (0.0-0.8); Monocytes % (Auto) 9 % (0-12); Neutrophils # (Auto) 5.5 Thou/mm3 (1.8-7.7); Neutrophils % (Auto) 64 % (37-80); Nucleated Red Blood Cell # 0.00 Thou/mm3 (0.00-0.00); Nucleated Red Blood Cell % 0 /100 WBC (0); Platelet Count 181 Thou/mm3 (140-440); RDW Standard Deviation 37.9 fL (35.1-43.9); Red Blood Count 4.70 Miln/mm3 (4.50-5.90); White Blood Count 8.6 Thou/mm3 (3.8-10.6)
[2025-05-28] MEDS: SODIUM CHLORIDE 0.9% 1000 ML 1,000 ML 120 ML IV (05:58)
[2025-05-28 06:31] LABS: Alanine Aminotransferase 22 U/L (10-49); Albumin, Serum 4.5 gm/dL (3.4-4.8); Albumin/Globulin Ratio 2.0 (1.2-2.2); Alkaline Phosphatase 66 U/L (46-116); Amylase 392 U/L (30-118); Anion Gap 11 (7-16); Aspartate Amino Transferase 17 U/L (0-34); BUN/Creatinine Ratio 13 Ratio (12-20); Bilirubin,Total 0.5 mg/dL (0.3-1.2); Blood Urea Nitrogen 13 mg/dL (9-23); Calcium 9.0 mg/dL (8.3-10.6); Calcium (Corrected) 9.0 mg/dL (8.5-10.1); Carbon Dioxide 23.3 mMol/L (20.0-31.0); Chloride 107 mMol/L (98-107); Creatinine (Component) 1.0 mg/dL (0.6-1.3); Estimated Creatinine Clearance 69.0 mL/min (>60); Globulin 2.3 gm/dL (2.3-3.5); Glucose 155 mg/dL (74-106); Lipase 234 U/L (12-53); Osmolality,Calculated 284 (275-295); Potassium 3.9 mMol/L (3.4-5.1); Sodium 141 mMol/L (136-145); Total Protein 6.8 gm/dL (5.7-8.2); eGFR > 60 See Note
[2025-05-28 07:54] VITALS: BP 116/71; PULSE 84; RESP 16; TEMP 36.3; O2SAT 90
[2025-05-28] MEDS: HEPARIN SOD INJ 5000 UNIT/ML VIAL SC (08:16)
[2025-05-28 10:30] VITALS: BMI 27.3
[2025-05-28 11:00] VITALS: BP 139/87; PULSE 80; RESP 18; TEMP 36.2; O2SAT 95
--- NOTE | 2025-05-28 13:04 | ESDS_ITS ---
<Statement entered by Sherie Sharif MD - 05/29/25 07:30> Patient was seen and examined by me personally. I have reviewed the below documentation by the team resident and agree with its findings with any exceptions as below. Discharge plan was discussed with the attending, Dr. Vila. Sherie Sharif, PGY-3 Planned Discharge Date 05/28/25 DS: Providers Provider Date of admission: 05/26/25 13:25 Primary care physician: Rosario Crouch MD Admitting Provider: Atul Gibbons DO Attending Provider on Admission: Gurdeep Vila MD Consults: 05/26/25 13:05 Consult to Gastroenterology Stat Comment: Consulting Provider: Justin Steve 05/27/25 11:05 Referral Registered Dietitian Routine Comment: New diabetic with A1c 6.8 Instructions: Will talk to the patient around 1-2 pm today about diabetes. Attending Provider on DC: Gurdeep Vila MD Discharging Provider: Cortes Saini MD DS: Diagnosis Problem List Completed Was Problem List Reviewed/Reconciled?: Yes Hospital Course Hospital Course Hospital course: Summary: Patient is a 65-year-old M with a PMH of pre-diabetes and HLD who presented on 05/26/2025 with a chief complaint of abdominal pain and was admitted for acute pancreatitis. Hospital: During patient's hospital course, he was treated with moderate IV fluid infusion, NPO bowel rest (with diet advancement as tolerated), pain medications, and Zofran IV for acute pancreatitis. Hemoglobin A1c this admission was found to be 6.8 (patient reported he was pre-diabetic during initial interview). By 05/28, patient was deemed clinically stabilized and discharged home with new medications of metformin and atorvastatin. Patient is safe to discharge. Further discharge instructions below. Discharge Recommendations: -Follow up with PCP within 1 week of discharge (please let them know you were recently hospitalized for mild pancreatitis and have been newly diagnosed with type 2 diabetes mellitus) -Your hemoglobin A1c this admission was 6.8 which means you are now diabetic. We have started the following medications for you to take: 1. Please take atorvastatin (Lipitor) 80 mg by mouth every night for your high cholesterol levels 2. Please take metformin 500 mg by mouth twice per day for better control of your blood sugars -Return to the ED or call EMS if symptoms return and/or worsen. Hospital Diagnoses: #Acute pancreatitis #Hyperlipidemia #Hepatic steatosis #T2DM Status at Discharge Cognitive/Behavioral Status at Discharge: stable Functional Status at Discharge: independent ambulation Overall Status at Discharge: patient is back to baseline Patient's care plan was discussed with my attending, Dr. Vila, and senior resident, Dr. Sharif. Cortes Saini, DO Internal Medicine, PGY-1 Time Spent with Patient Time attestation: Total time spent providing and/or coordinating discharge services: Time spent: Greater than 30 minutes Exam Vital Signs Temp Pulse Resp BP Pulse Ox O2 Del Method 97.2 F 80 18 139/87 H 95 Room Air 05/28/25 11:00 05/28/25 11:00 05/28/25 11:00 05/28/25 11:00 05/28/25 11:00 05/28/25 11:00 Narrative Exam General: Well-developed and well-nourished male in no acute distress. Skin: Warm, dry, intact, no obvious rash. Head: Normocephalic, atraumatic. Eyes: EOMI. Anicteric, vision grossly intact. Ears: No ear pain, no ear discharge, Hearing grossly intact. Nose: No nasal discharge. Mouth/Throat: Oral mucosa moist. No obvious lesions in oropharynx. Cardiovascular: Regular rate and normal rhythm, no murmur, no JVD or carotid bruits. +S1/S2. Respiratory: Bilateral lungs are clear to auscultation, respirations unlabored, no crackles, no wheezing. No accessory muscle use. Gastrointestinal: Soft, nontender, non-distended, no palpable masses. No guarding or rebound tenderness. Peristalsis present. Extremities: Symmetrical, no significant deformities. No edema, no cyanosis, no clubbing. 2+ radial pulse bilaterally, 2+ posterior tibial pulse bilaterally. Neuro: A&O x 3. No focal deficits observed. Conversant, moving all extremities. No overt cerebellar signs/incoordination. Psychiatric: Cooperative, appropriate affect. Discharge Plan Plan Patient Disposition: HOME (Self Care) Patient condition on transfer: Stable Care Plan Goals: Discharge Recommendations: -Follow up with PCP within 1 week of discharge (please let them know you were recently hospitalized for mild pancreatitis and have been newly diagnosed with type 2 diabetes mellitus) -Your hemoglobin A1c this admission was 6.8 which means you are now diabetic. We have started the following medications for you to take: 1. Please take atorvastatin (Lipitor) 80 mg by mouth every night for your high cholesterol levels 2. Please take metformin 500 mg by mouth twice per day for better control of your blood sugars -Return to the ED or call EMS if symptoms return and/or worsen. Prescriptions/Referrals Prescriptions/Med Rec: New metformin 500 mg tablet 500 mg PO BID 30 Days Qty: 60 2RF atorvastatin [Lipitor] 80 mg tablet 80 mg PO QPM 30 Days Qty: 30 2RF Discontinued ciprofloxacin HCl [Cipro] 500 mg tablet 500 mg PO BID Qty: 14 0RF ibuprofen 600 mg tablet 600 mg PO Q8H PRN (Reason: pain) Qty: 20 0RF Referrals: Rosario Crouch MD [Primary Care Provider, Internal Medicine] Patient/Caregiver Discharge Instructions Other Discharge Diet Instructions: Low fat diet Low carb diet Education Materials: Understanding Pancreatitis, Pancreatitis Acute Dc, ED Pancreatitis Print Language: Ivorian Stand Alone Forms: Janet Award Info., Patient Portal Info Letter Discharge Order Discharge Orders: Discharge (Routine); Ordered 05/28/25 Ordered By: Cortes Saini Quality Discharge Quality Measures VTE prophylaxis Attestestation MD Attestation I have examined the patient, reviewed labs and imaging findings, discussed the case with the resident(s), and reviewed entered orders. I agree with the plan of care as outlined in this note. Time Spent: [address] Cadence MD
== END 2025-05-28 13:30 | disposition home or self-care (01) | DRG 440 ==
LOC: SERX 13:45 → SERHOLD 13:47 → S3NX 16:48
PROVIDERS: Specialist; Admitting Provider Student in an Organized Health Care Education/Training Program; Emergency Provider Nurse Practitioner Family; PCP Internal Medicine; Visit Provider Student in an Organized Health Care Education/Training Program
DX: K85.90 Acute pancreatitis without necrosis or infection, unspecified (principal); E78.1 Pure hyperglyceridemia; K76.0 Fatty (change of) liver, not elsewhere classified; E11.9 Type 2 diabetes mellitus without complications; Z79.899 Other long term (current) drug therapy; Z79.84 Long term (current) use of oral hypoglycemic drugs
CPT/HCPCS: 36415; 74176; 76705; 80053; 80061; 81001; 82150; 83036; 83690; 85025; 87086; 96361; 96374; 96375; 96376; 99283; J1644; J2270; J2405; J2470; J7030; A9270